=== PATIENT | male | born 1980 | race African-American/Black ===

== ENCOUNTER 2023-06-11 14:41 | Inpatient (IN) ==
[2023-06-11] MEDS ORDERED: Ondansetron 4 mg VIAL 2 MG/ML 2 ml VIAL IV ONE (14:46)
[2023-06-11] MEDS ORDERED: Lactated Ringers 1000 ml BAG 1,000 ML IV ONE ×4 (15:25→22:33)
[2023-06-11 16:35] LABS: ABS Lymphocytes 0.9 10^3/uL (1.0-4.8); ABS Monocytes 0.9 10^3/uL (0.0-1.1); Hematocrit 42.3 % (38-53); Hemoglobin 14.7 g/dL (13.2-16.3); Lymphocyte % 9.4 %; Mean Corpuscular Hemoglobin 31.5 pg (27-33); Mean Corpuscular Hgb Conc 34.8 g/dL (31-36); Mean Corpuscular Volume 90.5 fL (80-97); Mean Platelet Volume 7.5 fL (7.5-11.2); Platelet Count 273 10^3/uL (150-450); Red Blood Count 4.67 10^6/uL (4.06-5.63); Red Cell Distribution Width 14.2 % (12-17); White Blood Count 9.8 10^3/uL (3.6-10.2)
[2023-06-11 16:58] LABS: High Sens Troponin Baseline 359 pg/mL (<20)
[2023-06-11 17:50] LABS: Alcohol, S < 13 mg/dL (<13)
[2023-06-11 17:53] LABS: High Sensitivity Troponin 1 Hr 414 pg/mL (<20)
[2023-06-11 18:35] LABS: Albumin 4.8 g/dL (3.2-5.2); Anion Gap 15 mmol/L (2-16); CO2 Carbon Dioxide 21 mmol/L (22-32); Chloride 102 mmol/L (101-111); Sodium 138 mmol/L (135-145)
[2023-06-11 18:41] LABS: ALT 23 U/L (7-52); AST 106 U/L (13-39); Albumin/Globulin Ratio 1.4 (1-3); Alkaline Phosphatase 74 U/L (35-149); Blood Urea Nitrogen 32 mg/dL (6-24); Creatinine, Serum 2.38 mg/dL (0.67-1.17); Globulin 3.4 g/dL (2-4); Glucose 112 mg/dL (70-100); Total Protein 8.2 g/dL (6.4-8.9); eGFR CKD-EPI 33.6 (>60)
[2023-06-11 18:56] LABS: Urine Appearance Cloudy; Urine Bilirubin Negative (Negative); Urine Blood 3+ (Negative); Urine Color Yellow; Urine Glucose Negative (Negative); Urine Ketones Trace (Negative); Urine Nitrite Negative (Negative); Urine Protein 1+(30 mg/dL) (Negative); Urine Specific Gravity 1.018 (1.002-1.030); Urine Urobilinogen Negative (Negative)
[2023-06-11] MEDS ORDERED: Heparin DRIP 25,000 UNITS BAG 25,000 UNITS/500 ML BAG IV SCH (19:00)
[2023-06-11] MEDS ORDERED: Heparin 5000 UNITS/ML 1 mL VIAL IV SCH (19:00)
[2023-06-11 19:05] LABS: Creatine Kinase 9810 U/L (10-223)
[2023-06-11 19:17] LABS: Urine Bacteria Absent (Absent); Urine Red Blood Cell 2+(6-10/hpf) (Absent); Urine Squamous Epithelial Cell Present (Absent); Urine White Blood Cell Trace(0-5/hpf) (Absent)
[2023-06-11 19:21] LABS: Urine Benzodiazepine Screen None Detected (None Detect); Urine Cannabinoids Screen None Detected (None Detect); Urine Opiates Screen None Detected (None Detect)
[2023-06-11 20:08] LABS: ABS Lymphocytes 1.1 10^3/uL (1.0-4.8); ABS Monocytes 0.6 10^3/uL (0.0-1.1); Eosinophil % 0.1 %; Hematocrit 40.7 % (38-53); Lymphocyte % 11.2 %; Mean Corpuscular Hemoglobin 31.2 pg (27-33); Mean Corpuscular Hgb Conc 34.4 g/dL (31-36); Mean Corpuscular Volume 90.8 fL (80-97); Mean Platelet Volume 7.7 fL (7.5-11.2); Platelet Count 260 10^3/uL (150-450); Red Blood Count 4.49 10^6/uL (4.06-5.63); Red Cell Distribution Width 14.5 % (12-17); White Blood Count 9.8 10^3/uL (3.6-10.2)
[2023-06-11 20:37] LABS: Creatinine, Serum 2.1 mg/dL (0.67-1.17); eGFR CKD-EPI 39.1 (>60)
[2023-06-11] MEDS ORDERED: Enoxaparin 40 MG/0.4 ML SYR SUBCUT SCH (21:00)
[2023-06-11 22:45] LABS: CRP High Sensitivity 107.96 mg/L (<2.00)
[2023-06-12] MEDS ORDERED: Lactated Ringers 1000 ml BAG 1,000 ML IV ONE (00:30)
[2023-06-12 05:45] LABS: Urine Creatinine Concentration 235.24 mg/dL (20.00-370.00)
[2023-06-12 06:38] LABS: Albumin 3.5 g/dL (3.2-5.2); Albumin/Globulin Ratio 1.3 (1-3); Calcium 8.2 mg/dL (8.6-10.3); Creatinine, Serum 1.84 mg/dL (0.67-1.17); Globulin 2.7 g/dL (2-4); Potassium 4.3 mmol/L (3.5-5.0); Total Bilirubin 0.4 mg/dL (0.2-1.0); Total Protein 6.2 g/dL (6.4-8.9); eGFR CKD-EPI 45.8 (>60)
[2023-06-12 10:09] LABS: C Reactive Protein 107.47 mg/L (<8.01)
[2023-06-12 10:57] LABS: HDL Cholesterol 38.1 mg/dL
[2023-06-12] MEDS ORDERED: Lactated Ringers 1000 ml BAG 1,000 ML IV SCH ×2 (11:00→20:00)
[2023-06-12 11:44] LABS: CKMB ng/mL 103.8 ng/mL (0.6-6.3)
[2023-06-12 12:28] LABS: High Sensitivity Troponin 1 Hr 294 pg/mL (<20)
[2023-06-12] MEDS ORDERED: Dextrose 50% Syringe 50 ml 25 GM/50 ML SYRINGE IV PUSH PRN (17:06)
[2023-06-12 17:29] LABS: Calcium 8.7 mg/dL (8.6-10.3); Creatinine, Serum 1.57 mg/dL (0.67-1.17); eGFR CKD-EPI 55.4 (>60)
[2023-06-12] MEDS ORDERED: Heparin DRIP 25,000 UNITS BAG 25,000 UNITS/500 ML BAG IV SCH (18:30)
[2023-06-12] MEDS ORDERED: Heparin 5000 UNITS/ML 1 mL VIAL IV SCH (19:00)
[2023-06-12 19:04] LABS: ABS Eosinophils 0.1 10^3/uL (0.0-0.5); ABS Lymphocytes 1.7 10^3/uL (1.0-4.8); ABS Monocytes 1.3 10^3/uL (0.0-1.1); ABS Neutrophils 5.3 10^3/uL (1.5-7.6); ABS Nucleated RBC 0.01 10^3/ul; Eosinophil % 0.8 %; Hematocrit 38.8 % (38-53); Hemoglobin 13.2 g/dL (13.2-16.3); Lymphocyte % 19.9 %; Mean Platelet Volume 7.5 fL (7.5-11.2); Nucleated Red Blood Cells % 0.1 /100 WBC (0.0-0.4); Platelet Count 235 10^3/uL (150-450); Red Blood Count 4.26 10^6/uL (4.06-5.63); Red Cell Distribution Width 14.3 % (12-17); White Blood Count 8.4 10^3/uL (3.6-10.2)
[2023-06-12 19:12] LABS: Activated Partial Thrombo Time 29.5 seconds (26.0-38.0)
[2023-06-12] MEDS: cefTRIAXone 1 gm/50 mL D5W 1 GM/50 ML BAG IV SCH (20:40)
[2023-06-12] MEDS ORDERED: Enoxaparin 40 MG/0.4 ML SYR SUBCUT SCH (21:00)
[2023-06-13 02:30] LABS: ABS Basophils 0.1 10^3/uL (0.0-0.1); ABS Eosinophils 0.1 10^3/uL (0.0-0.5); ABS Lymphocytes 2.7 10^3/uL (1.0-4.8); ABS Monocytes 1.3 10^3/uL (0.0-1.1); ABS Neutrophils 5.5 10^3/uL (1.5-7.6); Eosinophil % 0.9 %; Hematocrit 36.7 % (38-53); Hemoglobin 12.7 g/dL (13.2-16.3); Lymphocyte % 27.9 %; Mean Corpuscular Hemoglobin 31.1 pg (27-33); Mean Corpuscular Hgb Conc 34.6 g/dL (31-36); Mean Corpuscular Volume 89.9 fL (80-97); Mean Platelet Volume 7.4 fL (7.5-11.2); Platelet Count 235 10^3/uL (150-450); Red Blood Count 4.09 10^6/uL (4.06-5.63); Red Cell Distribution Width 14.2 % (12-17); White Blood Count 9.7 10^3/uL (3.6-10.2)
[2023-06-13 02:44] LABS: Calcium 8.4 mg/dL (8.6-10.3); Creatinine, Serum 1.41 mg/dL (0.67-1.17); Magnesium 2.2 mg/dL (1.9-2.7); Phosphorus 1.3 mg/dL (2.5-5.0); Potassium 3.9 mmol/L (3.5-5.0)
[2023-06-13] MEDS: Aspirin EC 81 mg TAB.EC (enteric coated) PO SCH (07:55)
[2023-06-13 08:43] LABS: C Reactive Protein 111.96 mg/L (<8.01)
[2023-06-13] MEDS: Potassium & Sodium Phos 250 mg = 1 PACKET PO SCH ×3 (10:28→18:05)
[2023-06-13 14:21] LABS: Myoglobin 657.3 ng/mL (17.4-105.7)
[2023-06-13] MEDS ORDERED: Lactated Ringers 1000 ml BAG 1,000 ML IV SCH (16:00)
[2023-06-13 19:34] LABS: Urine Alcohol Negative mg/dL (Cutoff: 10); Urine Barbiturates Negative; Urine Benzodiazepines Negative; Urine Cocaine Negative; Urine Methadone Presumptive Positive ng/mL (Negative); Urine Opiates Negative (Negative); Urine Phencyclidine Negative ng/mL (Cutoff: 25); Urine Tetrahydrocannabinol Negative ng/mL (Cutoff: 50)
[2023-06-13] MEDS: cefTRIAXone 1 gm/50 mL D5W 1 GM/50 ML BAG IV SCH (21:06)
[2023-06-14 09:03] LABS: Hematocrit 41.5 % (38-53); Hemoglobin 14.3 g/dL (13.2-16.3); Mean Corpuscular Hemoglobin 31.3 pg (27-33); Mean Corpuscular Hgb Conc 34.5 g/dL (31-36); Mean Corpuscular Volume 90.7 fL (80-97); Mean Platelet Volume 7.5 fL (7.5-11.2); Platelet Count 286 10^3/uL (150-450); Red Blood Count 4.58 10^6/uL (4.06-5.63); Red Cell Distribution Width 13.9 % (12-17); White Blood Count 7.8 10^3/uL (3.6-10.2)
[2023-06-14 09:05] LABS: ABS Basophils 0.1 10^3/uL (0.0-0.1); ABS Eosinophils 0.1 10^3/uL (0.0-0.5); ABS Lymphocytes 1.9 10^3/uL (1.0-4.8); ABS Monocytes 0.9 10^3/uL (0.0-1.1); ABS Neutrophils 4.5 10^3/uL (1.5-7.6); Eosinophil % 1.9 %; Lymphocyte % 25.7 %; Nucleated Red Blood Cells % 0.1 /100 WBC (0.0-0.4)
[2023-06-14 09:14] LABS: Calcium 8.7 mg/dL (8.6-10.3); Creatinine, Serum 1.13 mg/dL (0.67-1.17); Magnesium 2.2 mg/dL (1.9-2.7); Phosphorus 3.2 mg/dL (2.5-5.0); Potassium 3.7 mmol/L (3.5-5.0); eGFR CKD-EPI 82.2 (>60)
[2023-06-14] MEDS: Aspirin EC 81 mg TAB.EC (enteric coated) PO SCH (10:17)
[2023-06-14 10:50] LABS: C Reactive Protein 113.75 mg/L (<8.01)
[2023-06-14] MEDS ORDERED: Iohexol 350 (CONTRAST) 500 ML MDV IV ONE (11:46)
[2023-06-14 12:29] LABS: CKMB ng/mL 11.7 ng/mL (0.6-6.3)
[2023-06-14 14:13] LABS: High Sensitivity Troponin 1 Hr 60 pg/mL (<20)
[2023-06-14 17:00] LABS: TSH Ultra Thyroid Stim Horm 1.28 mcIU/mL (0.34-5.60)
[2023-06-14] MEDS: cefTRIAXone 1 gm/50 mL D5W 1 GM/50 ML BAG IV SCH (20:10)
[2023-06-15 06:56] LABS: ABS Eosinophils 0.2 10^3/uL (0.0-0.5); ABS Lymphocytes 2.5 10^3/uL (1.0-4.8); ABS Monocytes 0.8 10^3/uL (0.0-1.1); ABS Neutrophils 3.4 10^3/uL (1.5-7.6); ABS Nucleated RBC 0.01 10^3/ul; Eosinophil % 2.8 %; Hematocrit 40.8 % (38-53); Hemoglobin 14.3 g/dL (13.2-16.3); Lymphocyte % 35.7 %; Mean Corpuscular Hemoglobin 31.4 pg (27-33); Mean Corpuscular Volume 89.7 fL (80-97); Mean Platelet Volume 7.3 fL (7.5-11.2); Nucleated Red Blood Cells % 0.1 /100 WBC (0.0-0.4); Platelet Count 321 10^3/uL (150-450); Red Blood Count 4.55 10^6/uL (4.06-5.63); Red Cell Distribution Width 13.7 % (12-17); White Blood Count 6.9 10^3/uL (3.6-10.2)
[2023-06-15 07:06] LABS: Calcium 8.7 mg/dL (8.6-10.3); Creatinine, Serum 1.08 mg/dL (0.67-1.17); Potassium 3.4 mmol/L (3.5-5.0); eGFR CKD-EPI 86.8 (>60)
[2023-06-15] MEDS ORDERED: Potassium Chloride LIQUID 20 MEQ/15 ML LIQUID PO ONE (07:31)
[2023-06-15] MEDS: Aspirin EC 81 mg TAB.EC (enteric coated) PO SCH (08:57)
[2023-06-15] MEDS ORDERED: Polyethylene Glycol 3350 17 GM PACKET PO PRN (13:02)
[2023-06-15] MEDS ORDERED: Senna TAB 8.6 mg TAB PO PRN (13:02)
[2023-06-15] MEDS: cefTRIAXone 1 gm/50 mL D5W 1 GM/50 ML BAG IV SCH (20:14)
[2023-06-15] MEDS ORDERED: Enoxaparin 40 MG/0.4 ML SYR SUBCUT SCH (21:00)
[2023-06-16 07:14] LABS: ABS Basophils 0.1 10^3/uL (0.0-0.1); ABS Eosinophils 0.2 10^3/uL (0.0-0.5); ABS Lymphocytes 2.5 10^3/uL (1.0-4.8); ABS Monocytes 0.8 10^3/uL (0.0-1.1); ABS Neutrophils 3.5 10^3/uL (1.5-7.6); ABS Nucleated RBC 0.01 10^3/ul; Eosinophil % 3.4 %; Hemoglobin 15.2 g/dL (13.2-16.3); Lymphocyte % 35.3 %; Mean Corpuscular Hemoglobin 31.2 pg (27-33); Mean Corpuscular Hgb Conc 34.5 g/dL (31-36); Mean Corpuscular Volume 90.3 fL (80-97); Mean Platelet Volume 7.1 fL (7.5-11.2); Nucleated Red Blood Cells % 0.2 /100 WBC (0.0-0.4); Platelet Count 339 10^3/uL (150-450); Red Blood Count 4.87 10^6/uL (4.06-5.63); Red Cell Distribution Width 13.9 % (12-17); White Blood Count 7.2 10^3/uL (3.6-10.2)
[2023-06-16 07:34] LABS: Calcium 8.8 mg/dL (8.6-10.3); Creatinine, Serum 1.11 mg/dL (0.67-1.17); Magnesium 1.8 mg/dL (1.9-2.7); Phosphorus 3.9 mg/dL (2.5-5.0); Potassium 3.8 mmol/L (3.5-5.0)
[2023-06-16] MEDS: Aspirin EC 81 mg TAB.EC (enteric coated) PO SCH (09:03)
[2023-06-16] MEDS ORDERED: Aminophylline 25 MG/ML VIAL ONE (10:57)
[2023-06-16] MEDS ORDERED: Regadenoson 0.4 MG/5 ML SYRINGE ONE (10:57)
[2023-06-16 11:43] LABS: Cytomegalovirus IgG Antibody Negative (Negative)
[2023-06-16 12:21] LABS: JO-1 Antibody <0.2 U
[2023-06-16] MEDS ORDERED: Senna TAB 8.6 mg TAB PO PRN (13:19)
[2023-06-16 15:49] VITALS: BP 113/76
[2023-06-16] MEDS ORDERED: Polyethylene Glycol 3350 17 GM PACKET PO SCH (21:00)
[2023-06-18 05:49] LABS: EDDP By GC/MS 25204 ng/mL; Urine Methadone Confirm 17906 ng/mL; Urine Methadone Interpretation Positive.
== END 2023-06-16 19:40 | DRG 351 ==
LOC: ED 14:41 → EDHOLD 20:58 → SUATTDRO 20:58 → MEDTELE 23:06
PROVIDERS: ADMIT Internal Medicine; ATTEND Internal Medicine